=== PATIENT | female | born 1965 | race Two or more races ===

== ENCOUNTER 2024-08-01 10:32 | Outpatient (RCR) | payer MEDICARE, MEDICAID, SELFPAY ==
--- NOTE | 2024-08-07 00:36 | CTCFLWUP_ITS ---
Patient: HIRAL TORRES : 1965 Page 6 of 6 FOLLOW UP NOTE DATE OF SERVICE: 08/01/2024 NAME: HIRAL TORRES ACCOUNT: [id number] : 1965 AGE: 58 INTERVAL HISTORY: Patient is complaing of lesion over her skin. No other complains ONCOLOGY HISTORY: DIAGNOSIS: Stage I ER WV positive HER-2/andrew negative invasive ductal carcinoma of left breast (10/08/2013). Treated with adjuvant anastrozole which was discontinued on 01/10/2023. BRCA2 mutation positive heterozygous status. Bilateral breast silicone implantation for cosmetic reasons. Cardiac arrest due to anesthesia on 02/21/2020. Patient was scheduled to have right knee joint medial meniscus repair. Osteopenia, currently on Fosamax and Citracal. REASON FOR TODAY?S VISIT: This is office follow-up visit. Ms. Torres is here at [facility]. In August 2023 patient had what appears to be bilateral salpingo-oophorectomy and hysterectomy at [facility]. I do not have the surgical pathology report at this time. Following the surgery patient developed left leg numbness as well as weakness which is steadily improving at this time. She denies any new complaints today. Denies any cough, chest pain, abdominal pain or leg cramps. Ambulating well without any help. Has good appetite and good energy levels. Malignant neoplasm of upper-outer quadrant of left female breast [ICD10] C50.412 DATE OF DIAGNOSIS: 06/24/2013 STAGE/TNM: IA T1b N0 M0 TREATMENT HISTORY: Care?Plan Start?Date Cycle Day Intent DOCEtaxel?75,?DOXOrubicin?50,?Cyclophos?500?+?G?-?Adj 02/05/2014 1 21 Curative?(adjuvant) HISTORY OF PRESENT ILLNESS: Hiral Castillo is a 58-year-old postmenopausal female with following breast cancer history. 06/24/2013: Patient had bilateral mammograms for a palpable mass at 3 o'clock position in the left breast. Left breast mammogram showed focus of microcalcifications at 2 o'clock position. 07/25/2013: Left breast unilateral diagnostic mammogram was performed which showed suspicious microcalcifications with a poorly defined edges and 11 mm mass. Left breast sonogram was performed on the same day which revealed a solid nodule at 2 o'clock position measuring 1 x 0.5 x 0.7 cm with lobulated margins. 08/28/2013: Patient had fine-needle aspiration of the left breast mass at 2 o'clock position as well as at 3 o'clock position.. Pathology was positive for malignant cells. 10/08/2013: Patient had excision of the mass at 2 o'clock position as well as 3 o'clock position. A 0.9 cm invasive ductal carcinoma which was positive for surgical margins was noted at the 2 o'clock position. The mass at the 3 o'clock position showed a 0.7 cm invasive ductal carcinoma. Again the margins were positive. Both tumors were ER WV positive and HER-2/andrew negative. 02/05/2014: Patient was started on adjuvant chemotherapy with Adriamycin Taxotere and Cytoxan. She received a total of 6 cycles. Her last cycle was given on May 21, 2014. 06/30/2014:. Patient had radiation therapy to the left breast from 06/30/2014 through 08/18/2014. She received a total of 5040 cGy with 1260 boost. July 2014: Patient was started on adjuvant letrozole which she was not able to tolerate due to progressive arthralgias. Letrozole was discontinued and Aromasin was started. Aromasin was stopped in October 2015 due to persistent arthralgias. Tamoxifen was started in March 2016. She has been taking tamoxifen since then. 01/23/2018: She is in the clinic today for follow-up. She has been having slowly worsening shortness of breath over the last 6 months. She also complains of chest pain upper abdominal pain as well as pelvic pain. She grades the pain of 4/10. Loss of appetite. Denies any loss of weight. 03/26/2018: Patient is in the clinic today with CT scan of the chest abdomen pelvis with IV contrast done on February 28, 2018. CT scan showed 2 mm noncalcified pulmonary nodules in the right middle lobe. Today she complains of fainting spells that happened about 2 times in the last 3 weeks. According to her she has history of epilepsy. She was doing well on antiepileptic medication for last 18 years. Few months ago her medication was changed to troperamide since she did not have any epilepsy spells. Unfortunately for the last few weeks that she has been having these fainting spells. As per the patient she had CT scan of the brain recently which did not show any evidence of mass lesions in the brain. I was not able to find the CT reports. She denies any cough chest pain or shortness of breath at this time. 05/28/2018: Since last visit patient has seen Dr. Beck neurologist. Currently patient denies any further fainting spells. She is in the clinic today for follow-up. She denies any cough chest pain shortness of breath abdominal pain or leg cramps. According to the patient she stopped menstruating about 10 years ago. 12/03/2018: Tamoxifen stopped because of back pain leg cramps as well as pain in both hands. The symptoms improved after tamoxifen was stopped. 01/02/2019: Patient was started on anastrozole. 08/14/2019: Bone scan? 08/17/2019: MRI of both breasts? 09/03/2019: CT scan of the chest with IV contrast? 09/03/2019: Bilateral screening mammograms?BI-RADS Category 2: Benign findings. Yearly follow-up mammography recommended. 09/06/2019: PET CT scan? 02/21/2020: Cardiac arrest secondary to anesthesia. Patient was scheduled to have right knee joint medial meniscus repair which was aborted. 04/22/2021: Bone density test 12/03/2021: Ms. Torres had screening colonoscopy. 09/01/2022: PET CT scan?no interval metastatic disease. 01/10/2023: Anastrozole discontinued. August 2023: Ms. Torres had what appears to be bilateral salpingo- oophorectomy as well as hysterectomy at [facility]. 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 albuterol-budesonide - 90-80 mcg/actuation 2 As directed 2. Citracal - 200 mg (950 mg) 1 tab Twice a Day 3. ezetimibe - 10 mg 1 tab Daily 4. Fosamax - 35 mg 1 tab Weekly 5. IBU - 600 mg 1 tab Three times a day Medications Last Reconciled by Zofia Gonzalez MA on 08/01/2024 ALLERGIES: meperidine REVIEW OF SYSTEMS: A complete 14-point review of systems was performed and is negative except as noted in interval history. PHYSICAL EXAMINATION: VITAL SIGNS: Temperature?98, B/P?103/70, Oxygen?Saturation?96% Weight?154.6?lbs PAIN: 0 - No pain ECOG Performance Status: 0 - Asymptomatic and fully active GENERAL APPEARANCE: Appears well, in no apparent distress, appropriately interactive. HEENT: Normocephalic, no temporal wasting, normal conjunctiva, no scleral icterus, normal hearing, lips without lesions, neck normal range of motion. CARDIOVASCULAR: Not assessed. PULMONARY: Normal respiratory effort, no respiratory distress or use of accessory muscles, speaking in full sentences, no tachypnea. EXTREMITIES: No pedal edema or cyanosis. SKIN: skin lesions noted.. NEUROLOGIC: Alert and oriented x4. PSHYCHIATRIC: Appropriate affect, mood normal, behavior normal, intact thought and speech. LABORATORY DATA: I have personally reviewed and interpreted each of the patient?s relevant lab tests, abnormal findings are below: Date 03/20/15 05/22/15 08/18/15 ??WHITE?BLOOD?COUNT?(Thou/mm3) 6.3 4.7 ? ??RED?BLOOD?COUNT?(Miln/mm3) 4.79 4.74 ? ??HEMOGLOBIN?(gm/dl) 13.6 13.8 ? ??HEMATOCRIT?(%) 40.4 41.1 ? ??PLATELET?COUNT?(Thou/mm3) 197 232 ? ??NEUTROPHILS?%,?AUTO?(%) 74 62 ? ??LYMPH?%,?AUTO?(%) 19 28 ? ??NEUTROPHILS,?AUTO?(Thou/mm3) 4.7 2.9 ? ??GLUCOSE,RANDOM?(mg/dL) ? 76 ? ??BLOOD?UREA?NITROGEN?(mg/dL) ? 15 ? ??CREATININE?(mg/dL) ? 0.70 ? ??SODIUM?(mmol/L) ? 141 ? ??POTASSIUM?(mmol/L) ? 3.7 ? ??CHLORIDE?(mmol/L) ? 104 ? ??CrCl?(CandG)?(ml/min) ? 97.12 ? ??AST/SGOT?(Unit/L) ? 21 14?L ??ALT/SGPT?(Unit/L) ? 25 24 ??ALKALINE?PHOSPHATASE?(Unit/L) ? 106 96 ??BILIRUBIN,?TOTAL?(mg/dL) ? 0.4 0.3 ??PROTEIN?TOTAL?(gm/dl) ? 7.3 7.3 ??ALBUMIN,?SERUM?(gm/dl) ? 3.7 3.9 ??GLOBULIN?(gm/dl) ? 3.6?H ? ??ALBUMIN/GLOBULIN?RATIO ? 1.0?L ? ??CALCIUM,?SERUM?(mg/dL) ? 8.8 ? ??CALCIUM?SERUM?(CORRECTED)?(mg/dL) ? 9.0 ? ASSESSMENT/PLAN: The patient had what appears to be bilateral salpingo-oophorectomy and hysterectomy at [facility] in August 2023. Following surgery she developed mild weakness of the left lower extremity as well as numbness which is steadily improving at this time. BRCA 1and2 to positive status, heterozygous. Hereditary breast and ovarian cancer syndrome. Patient has taken adjuvant anastrozole for more than 9 years.stopped .. She continues to remain asymptomatic. Ms. Torres had a screening colonoscopy done on 12/03/2021. Osteopenia History of cardiac arrest due to anesthesia. Recovered well without any complications Stage I ER WV positive HER-2/andrew negative invasive ductal carcinoma of left breast Postmenopausal status. No specific intervention today. Continue Fosamax 35 mg p.o. once a week. Continue Citracal 1 tablet p.o. twice daily. I will see her back in clinic in 6 months with labs for follow-up Will refer to dermatology for skin lesion to rule out melanoma and squamous cell cancer ORDERS: Order # Description [id number] Comprehensive Metabolic Panel - 12 + CBC with Auto Diff + MD Follow Up 1 Year + CA 15-3 [id number] Bilateral + 3D Mammogram Screening [id number] MD Follow Up 6 Month RETURN TO CLINIC: 6 months BILLING AND COMPLIANCE: I reviewed external records from providers outside my specialty as summarized above. I spent a total of 50 minutes on this patient?s care on the day of their visit excluding time spent related to any billed procedures. This time includes time spent with the patient as well as time spent documenting in the medical record, reviewing patients records and tests, obtaining history, placing orders, communicating with other healthcare professionals, counseling the patient, family or caregiver, and/or care coordination for the diagnoses above. Electronically Signed by: {Object.Sanct_ID*PnP.NameFL@M}, {Object.Sanct_ID*PnP.Suffix@U} D: {Object.Sanct_Date} T: {Object.Sanct_Time} CC: Preet?Kvng,? PCP: Ephraim Pack Referring: Ephraim Pack This document was completed utilizing speech recognition software. Grammatical errors, random word insertions, pronoun errors, and incomplete sentences are an occasional consequence of this system due to software limitations, ambient noise, and hardware issues. Any formal questions or concerns about the content, text or information contained within the body of this dictation should be directly addressed to the provider for clarification.
== END 2024-08-28 23:59 | disposition home or self-care (01) ==
LOC: SCTC 10:32
PROVIDERS: PCP Family Medicine; Referring Provider Internal Medicine Hematology & Oncology; Visit Provider Internal Medicine Hematology & Oncology
DX: L98.9 Disorder of the skin and subcutaneous tissue, unspecified (principal); R53.1 Weakness; R20.0 Anesthesia of skin; Z85.3 Personal history of malignant neoplasm of breast; Z90.722 Acquired absence of ovaries, bilateral; Z90.710 Acquired absence of both cervix and uterus; Z15.01 Genetic susceptibility to malignant neoplasm of breast; Z15.02 Genetic susceptibility to malignant neoplasm of ovary; M85.88 Other specified disorders of bone density and structure, other site; Z78.0 Asymptomatic menopausal state; Z79.83 Long term (current) use of bisphosphonates; Z92.21 Personal history of antineoplastic chemotherapy; Z92.3 Personal history of irradiation
CPT/HCPCS: 99213; G0463

== ENCOUNTER → 2024-09-18 | Outpatient (CLI) | payer MEDICARE, MEDICAID, SELFPAY ==
--- NOTE | 2024-09-18 09:15 | XR_ITS ---
Examination: Screening digital mammography, bilateral Computer aided detection 3-D breast Tomosynthesis, bilateral Date and time of exam: September 18, 2024 0942 hours Compared to mammograms dating to October 30, 2017 Indication: Screening Technique: Nonmagnified MLO, CC views of the breasts to been obtained, reconstructed from 3-D Tomosynthesis images. R2 computer aided detection program utilized for evaluation of suspicious masses and/or abnormal calcifications. 3-D Tomosynthesis images obtained. Findings: Scattered areas of fibroglandular density Implants intact No interval suspicious masses Benign calcifications Impression: BI-RADS category II: Benign Findings. Recommend 1 year follow-up mammogram.
== END | disposition home or self-care (01) ==
LOC: CDIM 09:25
PROVIDERS: Referring Provider Internal Medicine Hematology & Oncology; Visit Provider Internal Medicine Hematology & Oncology
DX: Z12.31 Encounter for screening mammogram for malignant neoplasm of breast (principal); R92.323 Mammographic fibroglandular density, bilateral breasts; R92.1 Mammographic calcification found on diagnostic imaging of breast; C50.412 Malignant neoplasm of upper-outer quadrant of left female breast
CPT/HCPCS: 77063; 77067

== ENCOUNTER 2024-11-26 14:21 | Outpatient (AMB) | payer MEDICARE, MEDICAID, SELFPAY ==
[2024-11-26 14:47] VITALS: BP 101/64; PULSE 65; RESP 19; TEMP 36.4; O2SAT 97; BMI 25.4
--- NOTE | 2024-11-26 14:47 | PD.ORTHCLVIS ---
Vital signs 11/26/24 14:47 Height 1.65 m Height Method Stated Weight 69.541 kg Weight Measurement Method Standing Scale BMI 25.4 BP 101/64 Blood Pressure Source Automatic Cuff Blood Pressure Location Left Upper Arm Position Sitting Respiration 19 Pulse 65 Pulse Source Monitor Temp 97.6 F Temp Source Temporal Artery Scan Pulse Oximetry (%) 97 Oxygen Delivery Method Room Air Med/Allergies Allergies & Medications Allergies meperidine Allergy (Intermediate, Verified 11/26/24 14:56) WELTS Medication Reconciliation albuterol sulfate 90 mcg/actuation aerosol inhaler 90 mcg inhalation BID 02/20/20 [History Confirmed 11/26/24] anastrozole 1 mg tablet 1 mg PO QDAY 02/20/20 [History Confirmed 11/26/24] alendronate 35 mg tablet 35 mg PO QWEEK 12/03/21 [History Confirmed 11/26/24] calcium 315 mg (as citrate)-vitamin D3 6.25 mcg (250 unit) tablet (Citracal + Vitamin D Maximum) 1 tab PO QDAY 12/03/21 [History Confirmed 11/26/24] fluticasone propionate 50 mcg/actuation nasal spray,suspension 2 spray intranasal QDAY 12/03/21 [History Confirmed 11/26/24] ibuprofen 800 mg tablet 800 mg PO Q6H PRN Pain 12/03/21 [History Confirmed 11/26/24] Held on 12/03/21. Instructions: Resume on 12/04/21. montelukast 10 mg tablet 1 tab PO QDAY 12/03/21 [History Confirmed 11/26/24] Exam Exam Patient is in no acute distress and is cooperative with the examination today. Breathing is nonlabored. In no respiratory distress. Bilateral extremities were evaluated and demonstrates sensation intact to light touch. Palpable pedal pulses are present. No significant edema is present. Bilateral hips were examined. The patient has no pain with log roll of the hips. Internal rotation to 30 degrees and external rotation to 30 degrees is painless. Negative FADIR. The left knee was examined. The left knee is in varus alignment. Range of motion from 0-115 degrees. Knee is stable to varus and valgus as well as AP translation with <5mm. Patient has a negative McMurrays. There is no pain with patellofemoral compression and no crepitus noted. The knee is tender to palpation medially. The right knee was also examined. The right knee is in varus alignment. Range of motion from 0-120 degrees. Knee is stable to varus and valgus as well as AP translation with <5mm. Patient has a negative McMurrays. There is no pain with patellofemoral compression and no crepitus noted. The knee is tender to palpation medially. Assessment and Plan Problem List (1) Degenerative arthritis of knee, bilateral: Status: Acute Plan: Patient is a pleasant 59-year-old female with bilateral knee pain and bilateral knee arthritis. She has had over 5 injections in each knee. I would like to see weightbearing x-rays. We will likely continue with conservative treatment as she is not a great candidate for surgery given her medical history. Office Procedures GNS Level of Care Nursing/Assessment Patient Status: Initial/New Patient Nursing Assessment/Reassesment: Medication Reconciliation, Update PMH in EMR and Vital Signs Coordination of Care: Complex Care and Chronic Disease 1-5, Education Complex Pt/Fam, Consent,records obtained, informed consent, 1 Ins Authorization, Lab and Imaging orders, Results/Orders obtained and Staff clarify orders Special Needs: Language special needs New Patient Charge New Patient Point Assignment: 1124 New Patient Point Charge: CREDIT HISTORIAN Level 4 ([id number]) MA Intake Visit Data Collection New Patient or Established: New Patient (never been to [facility]) Reason for Visit:: BL KNEE PAIN Seen by Clinical Staff ONLY (RN/MA): No In Process Inspector Required: Yes PCP or OBGYN visit in last 3 months: Yes Hx Now: No Do You Feel Safe at Home: Yes Authorities Contacted: N/A Questionairres Past Medical History Past Medical History Have you ever been diagnosed with any of the following: Neurological Problems Seizures: No Migraine: Yes Cardiology Problems Cardiac Arrhythmia: Yes (cardiac arrest after anesthesia induction x2. was in coma both times.) Hypercholesterolemia: Yes Congestive Heart Failure: No Edema: No Cellulitis: No Respiratory Problems Chronic Obstructive Pulmonary Disease (COPD): No Asthma: Yes Emphysema: No Pneumonia: No Tuberculosis: Yes (preg had symptoms of TB) Stomache/Intestinal Problems Hepatitis: No Genital/Urinary Problems Renal Disease: No Kidney Stones: No Reproductive Problems Breast Cancer: Yes (left) Musculoskeletal Problems Arthritis: Yes Gout: No Scoliosis: No Fractures: No Endocrine Problems Diabetes Mellitus Type 1: No Diabetes Mellitus Type 2: No Blood Problems Sickle Cell Disease: No Clotting Problems: No Psychologic Problems Anxiety: Yes Depression: No Post Traumatic Stress Disorder: No Other Problems Hospitalization: Yes (cardiac arrest after anesthesia induction x2. was in coma both times in ICU) Shingles: No Falls: No Blood Transfusions: Yes (S/P cardiac arrest and dialysis) Blood Transfusion Reaction: No Anesthesia Reactions: Yes (cardiac arrest after anesthesia induction x2. was in coma both times in ICU) Chemotherapy: No Radiation Therapy: No MRSA: No Vancomycin-Resistant Enterococci: No Chicken Pox: Yes Measles: No Mumps: No Cancer: Yes Surgical History Hysterectomy: Yes (JUAN) Pacemaker: No Subjective Visit Visit for: new patient and knee Immunization / Flu Flu Vaccine in the Last 12 Months: Yes Flu Vaccine Exclusion Criteria: Already Received History of Present Illness Chief complaint: bilateral knee pain Date of injury / onset of symptoms: 10 YEARS Patient is a pleasant 59-year-old female with left greater than right knee pain. She has had over 5 injections in the knee. She does have a history of breast cancer with conservative treatment. She is no recent x-rays or weightbearing. She reports the pain is pretty miserable and she would like to get further conservative treatment. She is not interested in surgery as she does have a high recurrence risk of her cancer and had a very bad experience with anesthesia when she had her last knee surgery. She had arthroscopic meniscectomy previously Personal History Occupation: ST[employer] HOME Red flag PMH: other (specify) (HAD CANCER LEFT BREAST ) Pain Pain level (0-10): 6 Pain duration: CONSTANT Pain location: inside (medial) and anterior Pain quality: sharp, dull, aching and other (specify) (SWELLING) Pain timing: night, increases with activity and stairs Associated signs & symptoms: weakness and stiffness Ambulatory data Ambulatory device: none Treatments Number of previous injections: 5 Improvement with previous injections: No Improvement with PT: No Improvement with NSAIDS: no Review of Systems Review of Systems: All systems negative unless otherwise noted in HPI.
--- NOTE | 2024-11-26 14:59 | XR_ITS ---
Examination: Bilateral knees 2 views Bilateral knee left lateral knee 2 views Bilateral axial knees single view TECHNIQUE: Bilateral AP knees standing single view, bilateral PA knees standing flexion single view Standing right lateral knee left lateral knee 2 views Bilateral axial knees single view total 5 views Date and time: November 26, 2024 1513 hours INDICATIONS: Bilateral knee pain years FINDINGS: Moderate narrowing medial joint space right knee Moderate to advanced narrowing medial joint space left knee Bilateral significant osteoarthritis patellofemoral joints No fractures or patellar dislocation IMPRESSION: Moderate narrowing medial joint space right knee Moderate to advanced narrowing medial joint space left knee Bilateral significant osteoarthritis patellofemoral joints
== END 2024-11-26 15:07 | disposition home or self-care (01) ==
PROVIDERS: PCP Family Medicine; Referring Provider Family Medicine; Supervising Provider Orthopaedic Surgery Adult Reconstructive Orthopaedic Surgery; Visit Provider Orthopaedic Surgery Adult Reconstructive Orthopaedic Surgery
DX: M17.0 Bilateral primary osteoarthritis of knee (principal); M25.562 Pain in left knee; M25.561 Pain in right knee; E78.00 Pure hypercholesterolemia, unspecified; Z85.3 Personal history of malignant neoplasm of breast
CPT/HCPCS: 73564; 99204; G0463

== ENCOUNTER 2024-12-20 12:52 | Outpatient (AMB) | payer MEDICARE, MEDICAID, SELFPAY ==
--- NOTE | 2024-12-20 13:03 | ORTHONT_ITS ---
Vital signs 12/20/24 13:04 Height 1.65 m Height Method Stated Weight 69.938 kg Weight Measurement Method Standing Scale BMI 25.7 BP 108/69 Blood Pressure Source Automatic Cuff Blood Pressure Location Left Upper Arm Position Sitting Respiration 18 Pulse 60 Pulse Source Monitor Temp 97.3 F Temp Source Temporal Artery Scan Pulse Oximetry (%) 96 Oxygen Delivery Method Room Air Med/Allergies Allergies & Medications Allergies meperidine Allergy (Intermediate, Verified 12/20/24 13:04) WELTS Medication Reconciliation albuterol sulfate 90 mcg/actuation aerosol inhaler 90 mcg inhalation BID 02/20/20 [History Confirmed 12/20/24] anastrozole 1 mg tablet 1 mg PO QDAY 02/20/20 [History Confirmed 12/20/24] alendronate 35 mg tablet 35 mg PO QWEEK 12/03/21 [History Confirmed 12/20/24] calcium 315 mg (as citrate)-vitamin D3 6.25 mcg (250 unit) tablet (Citracal + Vitamin D Maximum) 1 tab PO QDAY 12/03/21 [History Confirmed 12/20/24] fluticasone propionate 50 mcg/actuation nasal spray,suspension 2 spray intranasal QDAY 12/03/21 [History Confirmed 12/20/24] ibuprofen 800 mg tablet 800 mg PO Q6H PRN Pain 12/03/21 [History Confirmed 12/20/24] Held on 12/03/21. Instructions: Resume on 12/04/21. montelukast 10 mg tablet 1 tab PO QDAY 12/03/21 [History Confirmed 12/20/24] Exam Exam Patient is in no acute distress and is cooperative with the examination today. Breathing is nonlabored. In no respiratory distress. Bilateral extremities were evaluated and demonstrates sensation intact to light touch. Palpable pedal pulses are present. No significant edema is present. Bilateral hips were examined. The patient has no pain with log roll of the hips. Internal rotation to 30 degrees and external rotation to 30 degrees is painless. Negative FADIR. The left knee was examined. The left knee is in varus alignment. Range of motion from 0-115 degrees. Knee is stable to varus and valgus as well as AP translation with <5mm. Patient has a negative McMurrays. There is no pain with patellofemoral compression and no crepitus noted. The knee is tender to palpation medially. The right knee was also examined. The right knee is in varus alignment. Range of motion from 0-120 degrees. Knee is stable to varus and valgus as well as AP translation with <5mm. Patient has a negative McMurrays. There is no pain with patellofemoral compression and no crepitus noted. The knee is tender to palpation medially. X-rays demonstrate moderate joint space narrowing of both knees Assessment and Plan Problem List (1) Degenerative arthritis of knee, bilateral: Status: Acute Plan: Patient is a pleasant 59-year-old female with bilateral knee pain and bilateral knee arthritis. She has had over 5 injections in each knee. I would like to see weightbearing x-rays. We will likely continue with conservative treatment as she is not a great candidate for surgery given her medical history. Recommend knee cortisone injection as patient would like to proceed with conservative treatment at this time. The risks and benefits of the procedure were reviewed with the patient and patient gave verbal consent to continue with the procedure. Procedure: performed by Dr. Lauren Using sterile technique the left knee was thoroughly prepped with alcohol, and approximately 1 cc of Depo-Medrol 80mg/mL and 4 cc of 0.2% ropivacaine was injected without resistance into the me dial tibial femoral joint space. The patient tolerated the procedure. Recommend knee cortisone injection as patient would like to proceed with conservative treatment at this time. The risks and benefits of the procedure were reviewed with the patient and patient gave verbal consent to continue with the procedure. Procedure: performed by Dr. Lauren Using sterile technique the Right knee was thoroughly prepped with alcohol, and approximately 1 cc of Depo-Medrol 80mg/mL and 4 cc of 0.2% ropivacaine was injected without resistance into the medial tibial femoral joint space. The patient tolerated the procedure. Office Procedures GNS Level of Care Nursing/Assessment Patient Status: Established Patient Nursing Assessment/Reassesment: Medication Reconciliation, Update PMH in EMR and Vital Signs Coordination of Care: Complex Care and Chronic Disease 1-5, Education Complex Pt/Fam, Consent,records obtained, informed consent, Results/Orders obtained and Staff clarify orders Special Needs: Language special needs Established Patient Charge Established Patient Point Assignment: 95 Established Patient Point Charge: EP Level 3 (80-115) Surgical Proc/IM SQ injection Major Surgical Procedure: Yes (BILATERAL KNEE INJECTION) Medication Given Medication Given Medication Given: Yes Documented Dose Given: 1 Route: Infiitration Medication Given Medication Given Medication Given: Yes Documented Dose Given: 1 Route: Infiitration Medication Given Medication Given Medication Given: Yes Documented Dose Given: 4 Route: Infiitration Medication Given Medication Given Medication Given: Yes Documented Dose Given: 4 Route: Infiitration Office Meds methylprednisolone acetate 80 mg/mL suspension for injection Performing Provider: Garrison Lauren MD Performing Location: [facility] Administered by: Garrison Lauren MD on 12/20/24 13:29 Dose Route Admin Location Dispensed Lot Number Expiration Date [facility] Repl[employer] 80 mg intra-articular 1 mL [id number] 05/30/26 7755-0175-00 PH [facility] methylprednisolone acetate 80 mg/mL suspension for injection Performing Provider: Garrison Lauren MD Performing Location: [facility] Administered by: Garrison Lauren MD on 12/20/24 13:29 Dose Route Admin Location Dispensed Lot Number Expiration Date [facility] Replenishment Associate 80 mg intra-articular 1 mL [id number] 05/30/26 1747-7763-58 ropivacaine (PF) 2 mg/mL (0.2 %) injection solution Performing Provider: Garrison Lauren MD Performing Location: [facility] Administered by: Garrison Lauren MD on 12/20/24 13:29 Dose Route Admin Location Dispensed Lot Number Expiration Date [place] [employer] 20 mL Infiltration 20 mL [id number] 05/30/27 11002-553-23 [facility] ropivacaine (PF) 2 mg/mL (0.2 %) injection solution Performing Provider: Garrison Lauren MD Performing Location: [facility] Administered by: Garrison Lauren MD on 12/20/24 13:29 Dose Route Admin Location Dispensed Lot Number Expiration Date [place] [employer] 20 mL Infiltration 20 mL [id number] 05/30/27 10385-861-66 [facility] [place] Intake Visit Data Collection Reason for Visit:: BL KNEE XRAYS Seen by Clinical Staff ONLY (RN/MA): No 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 was in coma both times.) Hypercholesterolemia: Yes Congestive Heart Failure: No Edema: No Cellulitis: No Respiratory Problems Chronic Obstructive Pulmonary Disease (COPD): No Asthma: Yes Emphysema: No Pneumonia: No Tuberculosis: Yes (preg had symptoms of TB) Stomache/Intestinal Problems Hepatitis: No Genital/Urinary Problems Renal Disease: No Kidney Stones: No Reproductive Problems Breast Cancer: Yes (left) Musculoskeletal Problems Arthritis: Yes Gout: No Scoliosis: No Fractures: No Endocrine Problems Diabetes Mellitus Type 1: No Diabetes Mellitus Type 2: No Blood Problems Sickle Cell Disease: No Clotting Problems: No Psychologic Problems Anxiety: Yes Depression: No Post Traumatic Stress Disorder: No Other Problems Hospitalization: Yes (cardiac arrest after anesthesia induction x2. was in coma both times in ICU) Shingles: No Falls: No Blood Transfusions: Yes (S/P cardiac arrest and dialysis) Blood Transfusion Reaction: No Anesthesia Reactions: Yes (cardiac arrest after anesthesia induction x2. was in coma both times in ICU) Chemotherapy: No Radiation Therapy: No MRSA: No Vancomycin-Resistant Enterococci: No Chicken Pox: Yes Measles: No Mumps: No Cancer: Yes Surgical History Hysterectomy: Yes (JUAN) Pacemaker: No Subjective Visit Visit for: follow up visit, knee (BILATERAL) and x-rays Immunization / Flu Flu Vaccine in the Last 12 Months: Yes Flu Vaccine Exclusion Criteria: Already Received History of Present Illness Chief complaint: bilateral knee pain Date of injury / onset of symptoms: 10 YEARS Patient is a pleasant 59-year-old female with left greater than right knee pain. She has had over 5 injections in the knee. She does have a history of breast cancer with conservative treatment. She is no recent x-rays or weightbearing. She reports the pain is pretty miserable and she would like to get further conservative treatment. She is not interested in surgery as she does have a high recurrence risk of her cancer and had a very bad experience with anesthesia when she had her last knee surgery. She had arthroscopic meniscectomy previously Personal History Occupation: [employer] HOME Red flag PMH: other (specify) (HAD CANCER LEFT BREAST ) Pain Pain level (0-10): 5 Pain duration: CONSTANT Pain location: inside (medial) and anterior Pain quality: sharp, dull, aching and other (specify) (SWELLING) Pain timing: night, increases with activity and stairs Associated signs & symptoms: weakness and stiffness Ambulatory data Ambulatory device: none Treatments Number of previous injections: 5 Improvement with previous injections: No Improvement with PT: No Improvement with NSAIDS: no Review of Systems Review of Systems: All systems negative unless otherwise noted in HPI.
[2024-12-20 13:04] VITALS: BP 108/69; PULSE 60; RESP 18; TEMP 36.3; O2SAT 96; BMI 25.7
== END 2024-12-20 13:26 | disposition home or self-care (01) ==
PROVIDERS: PCP Family Medicine; Referring Provider Family Medicine; Supervising Provider Orthopaedic Surgery Adult Reconstructive Orthopaedic Surgery; Visit Provider Orthopaedic Surgery Adult Reconstructive Orthopaedic Surgery
DX: M17.0 Bilateral primary osteoarthritis of knee (principal); M25.562 Pain in left knee; M25.561 Pain in right knee; E78.00 Pure hypercholesterolemia, unspecified; Z85.3 Personal history of malignant neoplasm of breast
CPT/HCPCS: 20610; 99213; J1010; J2795; G0463

== ENCOUNTER 2025-02-20 15:28 | Outpatient (AMB) | payer MEDICARE, MEDICAID, SELFPAY ==
[2025-02-20 15:37] VITALS: BP 130/79; PULSE 78; RESP 18; TEMP 36.4; O2SAT 98; BMI 26.0
--- NOTE | 2025-02-20 15:37 | ORTHONT_ITS ---
Vital signs 02/20/25 15:37 Height 1.65 m Height Method Measured Weight 70.931 kg Weight Measurement Method Standing Scale BMI 26.0 BP 130/79 Blood Pressure Source Automatic Cuff Blood Pressure Location Left Upper Arm Position Sitting Respiration 18 Pulse 78 Pulse Source Monitor Temp 97.5 F Temp Source Temporal Artery Scan Pulse Oximetry (%) 98 Oxygen Delivery Method Room Air Med/Allergies Allergies & Medications Allergies meperidine Allergy (Intermediate, Verified 02/20/25 15:38) WELTS Medication Reconciliation albuterol sulfate 90 mcg/actuation aerosol inhaler 90 mcg inhalation BID 02/20/20 [History Confirmed 02/20/25] anastrozole 1 mg tablet 1 mg PO QDAY 02/20/20 [History Confirmed 02/20/25] alendronate 35 mg tablet 35 mg PO QWEEK 12/03/21 [History Confirmed 02/20/25] calcium 315 mg (as citrate)-vitamin D3 6.25 mcg (250 unit) tablet (Citracal + Vitamin D Maximum) 1 tab PO QDAY 12/03/21 [History Confirmed 02/20/25] fluticasone propionate 50 mcg/actuation nasal spray,suspension 2 spray intranasal QDAY 12/03/21 [History Confirmed 02/20/25] ibuprofen 800 mg tablet 800 mg PO Q6H PRN Pain 12/03/21 [History Confirmed 02/20/25] Held on 12/03/21. Instructions: Resume on 12/04/21. montelukast 10 mg tablet 1 tab PO QDAY 12/03/21 [History Confirmed 02/20/25] diclofenac sodium 3 % topical gel (Solaraze) 1 applic topical BID #100 grams 02/20/25 [Rx] meloxicam 7.5 mg tablet 7.5 mg PO QDAY #45 tabs 02/20/25 [Rx] Exam Exam Patient is in no acute distress and is cooperative with the examination today. Breathing is nonlabored. In no respiratory distress. Bilateral extremities were evaluated and demonstrates sensation intact to light touch. Palpable pedal pulses are present. No significant edema is present. Bilateral hips were examined. The patient has no pain with log roll of the hips. Internal rotation to 30 degrees and external rotation to 30 degrees is painless. Negative FADIR. The left knee was examined. The left knee is in varus alignment. Range of motion from 0-115 degrees. Knee is stable to varus and valgus as well as AP translation with <5mm. Patient has a negative McMurrays. There is no pain with patellofemoral compression and no crepitus noted. The knee is tender to palpation medially. The right knee was also examined. The right knee is in varus alignment. Range of motion from 0-120 degrees. Knee is stable to varus and valgus as well as AP translation with <5mm. Patient has a negative McMurrays. There is no pain with patellofemoral compression and no crepitus noted. The knee is tender to palpation medially. X-rays demonstrate moderate joint space narrowing of both knees Assessment and Plan Problem List (1) Degenerative arthritis of knee, bilateral: Status: Acute Plan: Patient is a pleasant 59-year-old female with bilateral knee pain and bilateral knee arthritis. She has had over 5 injections in each knee. She did not get great relief with the last injections. She would like to try NSAIDS and she could try a gel injection should she not get great relief Office Procedures GNS Level of Care Nursing/Assessment Patient Status: Established Patient Nursing Assessment/Reassesment: Medication Reconciliation, Update PMH in EMR and Vital Signs Coordination of Care: Complex Care and Chronic Disease 1-5, Education Complex Pt/Fam, Consent,records obtained, informed consent, Results/Orders obtained and Staff clarify orders Special Needs: Language special needs Established Patient Charge Established Patient Point Assignment: 95 Established Patient Point Charge: EP Level 3 (80-115) MA Intake Visit Data Collection New Patient or Established: Established Patient (seen at [facility] within 3 years) Reason for Visit:: BL KNEE PAIN Seen by Clinical Staff ONLY (RN/MA): No 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 was in coma both times.) Hypercholesterolemia: Yes Congestive Heart Failure: No Edema: No Cellulitis: No Respiratory Problems Chronic Obstructive Pulmonary Disease (COPD): No Asthma: Yes Emphysema: No Pneumonia: No Tuberculosis: Yes (preg had symptoms of TB) Stomache/Intestinal Problems Hepatitis: No Genital/Urinary Problems Renal Disease: No Kidney Stones: No Reproductive Problems Breast Cancer: Yes (left) Musculoskeletal Problems Arthritis: Yes Gout: No Scoliosis: No Fractures: No Endocrine Problems Diabetes Mellitus Type 1: No Diabetes Mellitus Type 2: No Blood Problems Sickle Cell Disease: No Clotting Problems: No Psychologic Problems Anxiety: Yes Depression: No Post Traumatic Stress Disorder: No Other Problems Hospitalization: Yes (cardiac arrest after anesthesia induction x2. was in coma both times in ICU) Shingles: No Falls: No Blood Transfusions: Yes (S/P cardiac arrest and dialysis) Blood Transfusion Reaction: No Anesthesia Reactions: Yes (cardiac arrest after anesthesia induction x2. was in coma both times in ICU) Chemotherapy: No Radiation Therapy: No MRSA: No Vancomycin-Resistant Enterococci: No Chicken Pox: Yes Measles: No Mumps: No Cancer: Yes Surgical History Hysterectomy: Yes (JUAN) Pacemaker: No Subjective Visit Visit for: follow up visit and knee Immunization / Flu Flu Vaccine in the Last 12 Months: Yes Flu Vaccine Exclusion Criteria: Already Received History of Present Illness Chief complaint: bilateral knee pain Date of injury / onset of symptoms: 10 YEARS Patient is a pleasant 59-year-old female with left greater than right knee pain. She has had over 5 injections in the knee. She does have a history of breast cancer with conservative treatment. She is no recent x-rays or weightbearing. She reports the pain is pretty miserable and she would like to get further conservative treatment. She is not interested in surgery as she does have a high recurrence risk of her cancer and had a very bad experience with anesthesia when she had her last knee surgery. She had arthroscopic meniscectomy previously Personal History Occupation: STAY HOME Red flag PMH: other (specify) (HAD CANCER LEFT BREAST ) Pain Pain level (0-10): 5 Pain duration: CONSTANT Pain location: inside (medial) and anterior Pain quality: sharp, dull, aching and other (specify) (SWELLING) Pain timing: night, increases with activity and stairs Associated signs & symptoms: weakness and stiffness Ambulatory data Ambulatory device: none Treatments Number of previous injections: 5 Improvement with previous injections: No Improvement with PT: No Improvement with NSAIDS: no Review of Systems Review of Systems: All systems negative unless otherwise noted in HPI.
== END 2025-02-20 15:48 | disposition home or self-care (01) ==
LOC: HODSRG 15:28
PROVIDERS: PCP Family Medicine; Referring Provider Family Medicine; Supervising Provider Orthopaedic Surgery Adult Reconstructive Orthopaedic Surgery; Visit Provider Orthopaedic Surgery Adult Reconstructive Orthopaedic Surgery
DX: M25.562 Pain in left knee (principal); M25.561 Pain in right knee; Z85.3 Personal history of malignant neoplasm of breast
CPT/HCPCS: 99213; G0463

== ENCOUNTER 2025-03-21 09:20 | Outpatient (AMB) | payer MEDICARE, MEDICAID, SELFPAY ==
--- NOTE | 2025-03-21 09:49 | ORTHONT_ITS ---
Vital signs 03/21/25 09:52 Height 1.65 m Height Method Stated Weight 70.08 kg Weight Measurement Method Standing Scale BMI 25.7 BP 111/75 Blood Pressure Source Automatic Cuff Blood Pressure Location Left Upper Arm Position Sitting Respiration 18 Pulse 69 Pulse Source Monitor Temp 97.2 F Temp Source Temporal Artery Scan Pulse Oximetry (%) 98 Oxygen Delivery Method Room Air Med/Allergies Allergies & Medications Allergies meperidine Allergy (Intermediate, Verified 03/21/25 09:52) WELYVROSE Medication Reconciliation albuterol sulfate 90 mcg/actuation aerosol inhaler 90 mcg inhalation BID 1 [History Confirmed 03/21/25] anastrozole 1 mg tablet 1 mg PO QDAY 02/20/20 [History Confirmed 03/21/25] alendronate 35 mg tablet 35 mg PO QWEEK 12/03/21 [History Confirmed 03/21/25] calcium 315 mg (as citrate)-vitamin D3 6.25 mcg (250 unit) tablet (Citracal + Vitamin D Maximum) 1 tab PO QDAY 12/03/21 [History Confirmed 03/21/25] fluticasone propionate 50 mcg/actuation nasal spray,suspension 2 spray intranasal QDAY 12/03/21 [History Confirmed 03/21/25] ibuprofen 800 mg tablet 800 mg PO Q6H PRN Pain 12/03/21 [History Confirmed 03/21/25] Held on 12/03/21. Instructions: Resume on 12/04/21. montelukast 10 mg tablet 1 tab PO QDAY 12/03/21 [History Confirmed 03/21/25] diclofenac sodium 3 % topical gel (Solaraze) 1 applic topical BID #100 grams 02/20/25 [Rx Confirmed 03/21/25] meloxicam 7.5 mg tablet 7.5 mg PO QDAY #45 tabs 02/20/25 [Rx Confirmed 03/21/25] diclofenac sodium 1 % topical gel 4 g topical QID #100 grams 03/07/25 [Rx Confirmed 03/21/25] Exam Exam Patient is in no acute distress and is cooperative with the examination today. Breathing is nonlabored. In no respiratory distress. Bilateral extremities were evaluated and demonstrates sensation intact to light touch. Palpable pedal pulses are present. No significant edema is present. Bilateral hips were examined. The patient has no pain with log roll of the hips. Internal rotation to 30 degrees and external rotation to 30 degrees is painless. Negative FADIR. The left knee was examined. The left knee is in varus alignment. Range of motion from 0-115 degrees. Knee is stable to varus and valgus as well as AP translation with <5mm. Patient has a negative McMurrays. There is no pain with patellofemoral compression and no crepitus noted. The knee is tender to palpation medially. The right knee was also examined. The right knee is in varus alignment. Range of motion from 0-120 degrees. Knee is stable to varus and valgus as well as AP translation with <5mm. Patient has a negative McMurrays. There is no pain with patellofemoral compression and no crepitus noted. The knee is tender to palpation medially. X-rays demonstrate moderate joint space narrowing of both knees Assessment and Plan Problem List (1) Degenerative arthritis of knee, bilateral: Status: Acute Plan: Patient is a pleasant 59-year-old female with bilateral knee pain and bilateral knee arthritis. She has had over 5 injections in each knee. She did not get great relief with the last injections. She would like to try NSAIDS and she would like to try a gel injection today of both knees Recommend knee cortisone injections as patient would like to proceed with conservative treatment at this time. The risks and benefits of the procedure were reviewed with the patient and patient gave verbal consent to continue with the procedure. Procedure: performed by Dr. Lauren Using sterile technique the Bilateral knees were thoroughly prepped with alcohol, and the entire syringe of synvisc one (two total) was injected into each knee without resistance into the medial tibial femoral joint space. The patient tolerated the procedure. Office Procedures GNS Level of Care Nursing/Assessment Patient Status: Established Patient Nursing Assessment/Reassesment: Medication Reconciliation, Update PMH in EMR and Vital Signs Coordination of Care: Complex Care and Chronic Disease 1-5, Education Complex Pt/Fam, Consent,records obtained, informed consent, Results/Orders obtained and Staff clarify orders Special Needs: Language special needs Established Patient Charge Established Patient Point Assignment: 95 Established Patient Point Charge: EP Level 3 (80-115) Surgical Proc/IM SQ injection Minor Surgical Procedure: Yes (BILATERAL KNEE GEL INJECTION) Medication Given Medication Given Medication Given: Yes Documented Dose Given: 1 Route: Infiitration Medication Given Medication Given Medication Given: Yes Documented Dose Given: 1 Route: Infiitration Office Meds hylan g-f 20 48 mg/6 mL intra-articular syringe Performing Provider: Garrison Lauren MD Performing Location: [facility] Administered by: Garrison Lauren MD on 03/21/25 11:58 Dose Route Admin Location Dispensed Lot Number Expiration Date Pack age [facility] [place] Sample Puller 48 mg intra-articular KNEE 6 mL [id number] 04/29/27 [address]-2 [id number] [employer] AYUSH - hylan g-f 20 48 mg/6 mL intra-articular syringe Performing Provider: Garrison Lauren MD Performing Location: [facility] Administered by: Garrison Lauren MD on 03/21/25 11:58 Dose Route Admin Location Dispensed Lot Number Expiration Date Pack age [facility] [place] Sample Puller 48 mg intra-articular KNEE 6 mL [id number] 04/29/27 [address]-4 [id number] [employer]YME AYUSH - [place] Intake Visit Data Collection New Patient or Established: Established Patient (seen at [facility] within 3 years) Reason for Visit:: BL KNEE PAIN Seen by Clinical Staff ONLY (RN/MA): No Weatherization And Housing Inspector Required: Yes PCP or OBGYN visit in last 3 months: Yes Hx Now: No Do You Feel Safe at Home: Yes Authorities Contacted: N/A Questionairres Past Medical History Past Medical History Have you ever been diagnosed with any of the following: Neurological Problems Seizures: No Migraine: Yes Cardiology Problems Cardiac Arrhythmia: Yes (cardiac arrest after anesthesia induction x2. was in coma both times.) Hypercholesterolemia: Yes Congestive Heart Failure: No Edema: No Cellulitis: No Respiratory Problems Chronic Obstructive Pulmonary Disease (COPD): No Asthma: Yes Emphysema: No Pneumonia: No Tuberculosis: Yes (preg had symptoms of TB) Stomache/Intestinal Problems Hepatitis: No Genital/Urinary Problems Renal Disease: No Kidney Stones: No Reproductive Problems Breast Cancer: Yes (left) Musculoskeletal Problems Arthritis: Yes Gout: No Scoliosis: No Fractures: No Endocrine Problems Diabetes Mellitus Type 1: No Diabetes Mellitus Type 2: No Blood Problems Sickle Cell Disease: No Clotting Problems: No Psychologic Problems Anxiety: Yes Depression: No Post Traumatic Stress Disorder: No Other Problems Hospitalization: Yes (cardiac arrest after anesthesia induction x2. was in coma both times in ICU) Shingles: No Falls: No Blood Transfusions: Yes (S/P cardiac arrest and dialysis) Blood Transfusion Reaction: No Anesthesia Reactions: Yes (cardiac arrest after anesthesia induction x2. was in coma both times in ICU) Chemotherapy: No Radiation Therapy: No MRSA: No Vancomycin-Resistant Enterococci: No Chicken Pox: Yes Measles: No Mumps: No Cancer: Yes Surgical History Hysterectomy: Yes (JUAN) Pacemaker: No Subjective Visit Visit for: follow up visit and knee Immunization / Flu Flu Vaccine in the Last 12 Months: Yes Flu Vaccine Exclusion Criteria: Already Received History of Present Illness Chief complaint: bilateral knee pain Date of injury / onset of symptoms: 10 YEARS Patient is a pleasant 59-year-old female with left greater than right knee pain. She has had over 5 injections in the knee. She does have a history of breast cancer with conservative treatment. She reports the pain is pretty miserable and she would like to get further conservative treatment. She is not interested in surgery as she does have a high recurrence risk of her cancer and had a very bad experience with anesthesia when she had her last knee surgery. She had a rthroscopic meniscectomy previously Personal History Occupation: [employer] Red flag PMH: other (specify) (HAD CANCER LEFT BREAST ) Pain Pain level (0-10): 5 Pain duration: CONSTANT Pain location: inside (medial) and anterior Pain quality: sharp, dull, aching and other (specify) (SWELLING) Pain timing: night, increases with activity and stairs Associated signs & symptoms: weakness and stiffness Ambulatory data Ambulatory device: none Treatments Number of previous injections: 5 Improvement with previous injections: No Improvement with PT: No Improvement with NSAIDS: no Review of Systems Review of Systems: All systems negative unless otherwise noted in HPI.
[2025-03-21 09:52] VITALS: BP 111/75; PULSE 69; RESP 18; TEMP 36.2; O2SAT 98; BMI 25.7
== END 2025-03-21 10:08 | disposition home or self-care (01) ==
LOC: HODSRG 09:20
PROVIDERS: PCP Family Medicine; Referring Provider Family Medicine; Supervising Provider Orthopaedic Surgery Adult Reconstructive Orthopaedic Surgery; Visit Provider Orthopaedic Surgery Adult Reconstructive Orthopaedic Surgery
DX: M25.562 Pain in left knee (principal); M25.561 Pain in right knee; M17.0 Bilateral primary osteoarthritis of knee; Z85.3 Personal history of malignant neoplasm of breast
CPT/HCPCS: 20610; 99213; G0463; J7325